=== PATIENT | male | born 1995 | race Caucasian/White ===

== ENCOUNTER 2017-08-03 12:02 | Emergency (ER) | payer MEDICAID | END 2017-08-03 14:54 | disposition home or self-care (01) | LOC: D.ER 12:02 | DX: J11.1 Influenza due to unidentified influenza virus with other respiratory manifestations (principal); J20.9 Acute bronchitis, unspecified; F90.9 Attention-deficit hyperactivity disorder, unspecified type; F17.200 Nicotine dependence, unspecified, uncomplicated ==

== ENCOUNTER 2017-10-26 17:33 | Emergency (ER) | payer MEDICAID | END 2017-10-26 22:28 | disposition home or self-care (01) | LOC: D.ER 17:33 | DX: S60.221A Contusion of right hand, initial encounter (principal); S50.11XA Contusion of right forearm, initial encounter; W23.0XXA Caught, crushed, jammed, or pinched between moving objects, initial encounter; Y93.89 Activity, other specified; Y92.89 Other specified places as the place of occurrence of the external cause; S62.300A Unspecified fracture of second metacarpal bone, right hand, initial encounter for closed fracture; F90.9 Attention-deficit hyperactivity disorder, unspecified type; F17.200 Nicotine dependence, unspecified, uncomplicated ==

== ENCOUNTER 2017-11-14 15:03 | Emergency (ER) | payer MEDICAID | END 2017-11-14 17:36 | disposition home or self-care (01) | LOC: D.ER 15:03 | DX: S62.300A Unspecified fracture of second metacarpal bone, right hand, initial encounter for closed fracture (principal); X58.XXXA Exposure to other specified factors, initial encounter; Y93.9 Activity, unspecified; Y92.9 Unspecified place or not applicable ==

== ENCOUNTER 2018-04-03 09:44 | Emergency (ER) | payer SELFPAY ==
[~2018-04-03] VITALS: Ht 170.2 cm; Wt 5.4 kg
[2018-04-03 09:51] VITALS: BP 137/75; Ht 170.2 cm; Wt 5.4 kg
[2018-04-03] MEDS ORDERED: BENTYL 20 MG TA20 MG PO (09:54)
[2018-04-03] MEDS ORDERED: ULTRAM50 MG PO (09:55)
[2018-04-03] MEDS ORDERED: LISINOPRIL10 MG PO (09:55)
[2018-04-03] MEDS ORDERED: RANITIDINE HCL150 M1 (09:55)
[2018-04-03 10:55] LABS: ALBUMIN 4.1 g/dL (3.4-5.0); ALKALINE PHOSPHATASE 79 U/L (46-116); ALT (SGPT) 29 U/L (10-68); BILIRUBIN - TOTAL 0.22 mg/dL (0.2-1.3); CALC OSMOLALITY 280 mosm/kg (275-300); CALCIUM 9.2 mg/dL (8.5-10.1); CARBON DIOXIDE 28.2 mmol/L (21.0-32.0); CHLORIDE - SERUM 103 mmol/L (98-107); GLUCOSE 99 mg/dL (74-106); POTASSIUM - SERUM 4.3 mmol/L (3.5-5.1); PROTEIN - SERUM 7.1 g/dL (6.4-8.2); SODIUM 141 mmol/L (136-145); UREA NITROGEN 12 mg/dL (7-18); eGFR NON AFRICAN AMERICAN > 90 mL/min (90-120)
[2018-04-03 11:04] LABS: BASOPHILS 0.2 % (0-2); EOSINOPHILS 1.7 % (0-7); HEMATOCRIT 45.5 % (42.0-54.0); HEMOGLOBIN 15.5 g/dL (13.5-17.5); IMMATURE GRANULOCYTES 0.3 % (0-5); MCH 31.8 pg (26.0-34.0); MCHC 34.1 g/dL (31.0-37.0); MCV 93.2 fL (80.0-100.0); MEAN PLATELET VOLUME 10.9 fL (7.4-10.4); MONOCYTES 5.1 % (2-11); NEUTROPHILS 78.7 % (40-80); RBC 4.88 10x6/uL (4.20-6.10); RDW 13.6 % (11.5-14.5)
[2018-04-03 11:05] LABS: PLATELET COUNT 330 10x3/uL (130-400)
[2018-04-03] MEDS ORDERED: ZANTAC300 MG PO (13:21)
== END 2018-04-03 14:46 | disposition home or self-care (01) ==
LOC: D.ER 09:44
PROVIDERS: Family Medicine
DX: K29.21 Alcoholic gastritis with bleeding (principal); K92.0 Hematemesis; I10 Essential (primary) hypertension; F17.200 Nicotine dependence, unspecified, uncomplicated

== ENCOUNTER 2018-05-31 00:03 | Emergency (ER) | payer SELFPAY | END 2018-05-31 03:15 | disposition home or self-care (01) | LOC: D.ER 00:03 | DX: S01.81XA Laceration without foreign body of other part of head, initial encounter (principal); Y04.2XXA Assault by strike against or bumped into by another person, initial encounter; Y93.89 Activity, other specified; Y92.89 Other specified places as the place of occurrence of the external cause; F17.200 Nicotine dependence, unspecified, uncomplicated ==

== ENCOUNTER 2018-06-14 13:34 | Emergency (ER) | payer MEDICAID ==
[~2018-06-14] VITALS: Ht 177.8 cm; Wt 77.3 kg
[~2018-06-14 13:34] MED LIST: BENTYL 20 MG TA20 MG PO; LISINOPRIL10 MG PO; RANITIDINE HCL150 M1; ULTRAM50 MG PO; ZANTAC300 MG PO
[2018-06-14 13:48] VITALS: Ht 177.8 cm; Wt 77.3 kg
[2018-06-14] MEDS ORDERED: BUTALB-APAP-CA1 EACH PO (14:59)
[2018-06-14 15:17] VITALS: BP 135/94
== END 2018-06-14 15:17 | disposition home or self-care (01) ==
LOC: D.ER 13:34
DX: G44.309 Post-traumatic headache, unspecified, not intractable (principal); F07.81 Postconcussional syndrome; R42 Dizziness and giddiness; I10 Essential (primary) hypertension; F17.200 Nicotine dependence, unspecified, uncomplicated